=== PATIENT | female | born 1955 | race Caucasian/White ===

== ENCOUNTER 2023-08-10 06:35 | Day surgery (SDC) | payer MEDICARE, OTHER, SELFPAY ==
[2023-08-10 09:52] VITALS: BMI 22.3
[2023-08-10 09:59] VITALS: BMI 22.3
[2023-08-10 10:00] VITALS: BP 147/64
[2023-08-10 12:17] VITALS: BP 101/64
[2023-08-10 12:30] VITALS: BP 120/49
== END 2023-08-10 12:48 | disposition home or self-care (01) ==
LOC: SDS 06:35
PROVIDERS: ATTENDING PHYSICIAN Internal Medicine Gastroenterology
DX: Z12.11 Encounter for screening for malignant neoplasm of colon (principal); K50.10 Crohn's disease of large intestine without complications; K64.0 First degree hemorrhoids
CPT/HCPCS: 45385; 45380; 88305

== ENCOUNTER → 2024-01-29 08:06 | Outpatient (REF) | payer MEDICARE, OTHER, SELFPAY | LOC: RAD 08:06 | PROVIDERS: ATTENDING PHYSICIAN Obstetrics & Gynecology; FAMILY PHYSICIAN Physician Assistant Medical | DX: N95.1 Menopausal and female climacteric states (principal); N95.9 Unspecified menopausal and perimenopausal disorder | CPT/HCPCS: 77080 ==

== ENCOUNTER → 2024-01-29 11:14 | Outpatient (REF) | payer MEDICARE, OTHER, SELFPAY | LOC: MRI 3T 11:14 | PROVIDERS: ATTENDING PHYSICIAN Internal Medicine Gastroenterology; FAMILY PHYSICIAN Physician Assistant Medical | DX: K50.811 Crohn's disease of both small and large intestine with rectal bleeding (principal) | CPT/HCPCS: 72197; 74183; A9575 ==

== ENCOUNTER → 2024-05-28 15:35 | Outpatient (REF) | payer MEDICARE, OTHER, SELFPAY | LOC: WDC 15:35 | PROVIDERS: ATTENDING PHYSICIAN Obstetrics & Gynecology; FAMILY PHYSICIAN Physician Assistant Medical | DX: Z12.31 Encounter for screening mammogram for malignant neoplasm of breast (principal) | CPT/HCPCS: 77063; 77067 ==

== ENCOUNTER 2024-08-02 06:24 | Day surgery (SDC) | payer MEDICARE, OTHER, SELFPAY | END 2024-08-02 08:53 | disposition home or self-care (01) | LOC: GI 06:24 | PROVIDERS: ATTENDING PHYSICIAN Internal Medicine Gastroenterology | DX: Z12.11 Encounter for screening for malignant neoplasm of colon (principal); K50.10 Crohn's disease of large intestine without complications; K63.5 Polyp of colon; K63.89 Other specified diseases of intestine; K64.0 First degree hemorrhoids | CPT/HCPCS: 45385; 45380; 88305 ==